=== PATIENT | female | born 1960 | race Caucasian/White ===

== ENCOUNTER 2016-10-20 10:59 | Observation (INO) | payer BC, MEDICAID, MEDICARE, OTHER ==
[2016-10-20 12:15] LABS: BASOPHILS PERCENT AUTO 0.3 % (0.2-1.2); EOSINOPHILS PERCENT AUTO 1.6 % (0.0-4.0); HEMATOCRIT 39.2 % (33.0-47.0); LYMPHOCYTES PERCENT AUTO 16.3 % (25.0-50.0); MEAN CORPUSCULAR HEMOGLOBIN 32.3 pg (26.0-32.0); MEAN CORPUSCULAR HGB CONC 33.2 g/dL (32.0-36.0); MEAN CORPUSCULAR VOLUME 97.5 fL (78.0-93.0); NEUTROPHILS PERCENT AUTO 64.9 % (50.0-80.0); RDW CV 14.6 % (10.0-15.0); RED BLOOD CELL COUNT 4.02 x10^6/uL (4.00-5.50)
[2016-10-20 12:36] LABS: A/G RATIO 0.59; ALBUMIN 2.9 g/dL (3.4-5.0); ALKALINE PHOSPHATASE 97 U/L (46-116); B-TYPE NATRIURETIC PEPTIDE,BNP 175 pg/mL (<=125); BILIRUBIN TOTAL 0.2 mg/dL (0.2-1.0); CALCIUM 9.1 mg/dL (8.5-10.1); CHLORIDE,CL 100 mmol/L (98-107); CORRECTED CALCIUM 9.98 mg/dL (8.5-10.1); ESTIMATED GFR 58; GLUCOSE RANDOM 104 mg/dL (74-106); MAGNESIUM 1.7 mg/dL (1.8-2.4)
[2016-10-20 12:37] LABS: APPEARANCE,URINE CLOUDY (CLEAR); BILIRUBIN,URINE NEGATIVE (NEGATIVE); GLUCOSE,URINE NEGATIVE (NEGATIVE); KETONES,URINE NEGATIVE (NEGATIVE); LEUKOCYTE ESTERASE,URINE NEGATIVE (NEGATIVE); NITRITE,URINE NEGATIVE (NEGATIVE); OCCULT BLOOD,URINE TRACE-INTACT (NEGATIVE); PROTEIN,URINE 100 mg/dL (NEGATIVE); UROBILINOGEN,URINE 0.2 EU/dL (0.2)
[2016-10-20 12:47] LABS: MONOCYTES PERCENT AUTO 16.9 % (2.0-11.0)
[2016-10-20 12:51] LABS: BACTERIA,URINE FEW /HPF (NEGATIVE); MUCUS,URINE FEW /LPF (NEGATIVE); WBC,URINE 0-5 /HPF (NOT SEEN)
--- NOTE | 2016-10-20 14:14 | EDM.PDOC ---
ED HPI GENERAL MEDICAL PROBLEM - General Chief Complaint: General Stated Complaint: FALL Time Seen by Provider: 10/20/16 11:06 Source of Information: Reports: Patient, EMS, Family (Sister) - History of Present Illness INITIAL COMMENTS - FREE TEXT/NARRATIVE: The patient hit her head this morning on the toilet. She then went to the floor and she could not get up. This happened about 5:00 in the morning. She does live alone. She does have a sister in town and then she has another sister lives about 15 miles out of town. She states that then she crawled over towards the couch and there she excellently rubbed her head against the carpet and suffered a rug burn to her left orbit. The patient was unable to reach her phone and notify her sister. When EMS was called EMS were unable to get into the household. They called for keys and the keys were not working so they did have to break into the door to get to the patient. Patient does have weakness. She does have a history of lung cancer with metastases to the brain. The patient has had chemotherapy about three weeks ago and she is scheduled for another round of chemotherapy here in a week. The patient is unsure why she fell when she did. She is not completely sure if she was knocked unconscious or not. I did do a CT scan of the head and neck. Back came back negative. I did talk to the radiologist at that time. I also did a chest x-ray. The patient was concerned about rib fractures on the left side these are anterior and about the ninth and 10th rib. No pneumo. The patient's sister was also concerned about rib fractures. The patient looks much older than her stated age. I did do lab work and the patient did have some incontinence and I did get two different urine specimens one was mildly suggestive of UTI. I did talk to Dr. Davis regarding this patient and he did not feel as though she met criteria for acute care. I agreed. I did put her in for observation and Jelani RUBY will cover in the morning. I think that the patient is too high risk to go home at this time because she will most likely fall at this point. She does do her own physical therapy at home. She normally sees Dr. Jam Crocker. Patient does have a port. She also has a very supportive sister. The patient did have a slight headache. She also had muscle spasms. Onset: today Duration: Getting worse Location: Reports: generalized Quality: Reports: Ache Severity: severe Improves with: Reports: None Worsens with: Reports: Movement Associated Symptoms: Reports: weakness. Denies: confusion Chest Pain Score (Numeric/FACES): 0 Head Pain Score (Numeric/FACES): 8 - Related Data Allergies Allergy/AdvReac Type Severity Reaction Status Date / Time morphine Allergy Itching Verified 10/20/16 23:18 Home Meds: Home Meds Albuterol [Proventil HFA] 1 - 2 puff INH Q4H PRN 10/20/16 [History] Aspirin 81 mg PO DAILY 10/20/16 [History] Carboxymethylcellulos/Glycerin [Refresh Optive Gel Eye Drops] 1 drop EYEBOTH BID 10/20/16 [History] Folic Acid 1 mg PO DAILY 10/20/16 [History] Levothyroxine Sodium 137 mcg PO DAILY 10/20/16 [History] Lidocaine/Prilocaine [EMLA Crm] 1 applic TOP ASDIRECTED 10/20/16 [History] Nicotine Polacrilex [Nicotine Lozenge] 1 alba PO Q2H PRN 10/20/16 [History] Omeprazole Magnesium [Prilosec Otc] 20 mg PO BID PRN 10/20/16 [History] Ondansetron [Zofran] 8 mg PO Q8H PRN 10/20/16 [History] PARoxetine HCl [Paroxetine HCl] 30 mg PO DAILY 10/20/16 [History] traMADol [Ultram] 50 - 100 mg PO Q6H PRN 10/20/16 [History] traZODone 25 - 50 mg PO BEDTIME 10/20/16 [History] Past Medical History - Past Health History Medical/Surgical History: Denies Medical/Surgical History Psychiatric History: Reports: Depression Endocrine/Metabolic History: Reports: Hypothyroidism Oncologic (Cancer) History: Reports: Brain, Lung - Past Surgical History Endocrine Surgical History: Reports: Thyroidectomy Social & Family History - Tobacco Use Smoking Status *Q: Unknown Ever Smoked Years of Tobacco use: 35 Second Hand Smoke Exposure: Yes - Alcohol Use Days Per Week of Alcohol Use: 0 - Recreational Drug Use Recreational Drug Use: No ED ROS GENERAL - Review of Systems Review Of Systems: See Below Constitutional: Reports: weakness, fatigue, decreased appetite HEENT: Reports: Other (discomfort about her head. ) Respiratory: Reports: no symptoms, shortness of breath, other (some lower left chest pain. ) Cardiovascular: Reports: Syncope Endocrine: Reports: fatigue GI/Abdominal: Reports: Diarrhea, Decreased appetite : Reports: no symptoms Musculoskeletal: Reports: muscle pain, muscle stiffness Skin: Reports: no symptoms Neurological: Reports: syncope, difficulty walking, weakness, gait disturbance Psychiatric: Reports: Depression ED EXAM, GENERAL - Physical Exam Exam: See Below Exam Limited By: No limitations General Appearance: alert, moderate distress Eye Exam: bilateral eye: EOMI Ears: normal external exam, normal canal, normal TMs Ear Exam: bilateral ear: auricle normal, canal normal, TM normal Nose: normal inspection, normal mucosa Head: facial tenderness (The patient does have a abrasion to the top of her head. She also has a rug burn to the left side of her left orbit and this is quite small.), other Neck: normal inspection, full range of motion, tender lateral Respiratory/Chest: no respiratory distress, lungs clear, other (Patient does have some reproducible discomfort about the left anterior chest about ribs 10 and 11 without any crepitus. She also has a port.) Cardiovascular: normal peripheral pulses, regular rate, rhythm GI/Abdominal: normal bowel sounds, soft, non tender Extremities: normal inspection Neurological: alert, abnormal gait. No: disoriented Psychiatric: anxious, other (cathetic in nature. ) Skin Exam: Warm, Dry Course - Vital Signs Text/Narrative:: I also gave her a liter of fluids. I will hold off on Antibiotic therapy for now until the urine culture comes back. She will be reassessed in the morning by Jelani RUBY. Last Recorded V/S: Last Vital Signs Temp 36.7 C 10/21/16 06:00 Pulse 70 10/21/16 06:00 Resp 20 10/21/16 06:00 BP 114/65 10/21/16 06:00 Pulse Ox 99 10/21/16 06:00 - Orders/Labs/Meds Orders: Active Orders 24 hr Category Date Time Status CXR [Chest 1V Frontal] [CR] Stat Exams 10/20/16 15:25 Taken Cervical Spine wo Cont [CT] Stat Exams 10/20/16 12:02 Taken Head wo Cont [CT] Stat Exams 10/20/16 12:00 Taken CULTURE URINE [RM] Stat Lab 10/20/16 12:30 Received Medication Orders Diphenhydramine HCl (Benadryl) 12.5 mg IVPUSH Q4H PRN PRN Reason: Itching Hydromorphone HCl (Dilaudid) 1 mg IVPUSH Q4H PRN PRN Reason: Pain Last Admin: 10/21/16 07:53 Dose: 1 mg Admin: 10/21/16 01:33 Dose: 1 mg Ondansetron HCl (Zofran Odt) 8 mg PO Q6H PRN PRN Reason: Nausea/Vomiting Labs: Laboratory Tests 10/20/16 10/20/16 10/20/16 Range/Units 11:31 11:31 11:31 WBC 3.7 L (4.0-10.0) x10^3/uL RBC 4.02 (4.00-5.50) x10^6/uL Hgb 13.0 (12.0-16.0) g/dL Hct 39.2 (33.0-47.0) % MCV 97.5 H (78.0-93.0) fL MCH 32.3 H (26.0-32.0) pg MCHC 33.2 (32.0-36.0) g/dL RDW Coeff of Teofilo 14.6 (10.0-15.0) % Plt Count 249 (130-400) x10^3/uL Neut % (Auto) 64.9 (50.0-80.0) % Lymph % (Auto) 16.3 L (25.0-50.0) % [place] % (Auto) 16.9 H (2.0-11.0) % Eos % (Auto) 1.6 (0.0-4.0) % Baso % (Auto) 0.3 (0.2-1.2) % Sodium 134 L (136-145) mmol/L Potassium 3.8 (3.5-5.1) mmol/L Chloride 100 (98-107) mmol/L Carbon Dioxide 28 (21-32) mmol/L BUN 16 (7-18) mg/dL Creatinine 1.0 (0.55-1.02) mg/dL Est Cr Clr Drug Dosing TNP Estimated GFR (MDRD) 58 Glucose 104 (74-106) mg/dL Lactic Acid 1.1 (0.4-2.0) mmol/L Calcium 9.1 (8.5-10.1) mg/dL Corrected Calcium 9.98 (8.5-10.1) mg/dL Magnesium 1.7 L (1.8-2.4) mg/dL Total Bilirubin 0.2 (0.2-1.0) mg/dL AST 31 (15-37) U/L ALT 41 (14-59) U/L Alkaline Phosphatase 97 (46-116) U/L Creatine Kinase (26-192) U/L B-Natriuretic Peptide 175 H (<=125) pg/mL Total Protein 7.8 (6.4-8.2) g/dL Albumin 2.9 L (3.4-5.0) g/dL Globulin 4.9 Albumin/Globulin Ratio 0.59 Urine Color (YELLOW) Urine Appearance (CLEAR) Urine pH (5.0-8.0) Ur Specific [place] Urine Protein (NEGATIVE) mg/dL Urine Glucose (UA) (NEGATIVE) mg/dL Urine Ketones (NEGATIVE) mg/dL Urine Occult Blood (NEGATIVE) Urine Nitrite (NEGATIVE) Urine Bilirubin (NEGATIVE) Urine Urobilinogen (0.2) EU/dL Ur Leukocyte Esterase (NEGATIVE) Urine RBC (NOT SEEN) /HPF Urine WBC (NOT SEEN) /HPF Ur Squamous Epith Cells (NEGATIVE) /HPF Triple Phos Crystals (NEGATIVE) /HPF Amorphous Sediment Urine Bacteria (NEGATIVE) /HPF Urine Mucus (NEGATIVE) /LPF 10/20/16 10/20/16 10/20/16 Range/Units 11:31 12:30 14:17 WBC (4.0-10.0) x10^3/uL RBC (4.00-5.50) x10^6/uL Hgb (12.0-16.0) g/dL Hct (33.0-47.0) % MCV (78.0-93.0) fL MCH (26.0-32.0) pg MCHC (32.0-36.0) g/dL RDW Coeff of Teofilo (10.0-15.0) % Plt Count (130-400) x10^3/uL Neut % (Auto) (50.0-80.0) % Lymph % (Auto) (25.0-50.0) % [place] % (Auto) (2.0-11.0) % Eos % (Auto) (0.0-4.0) % Baso % (Auto) (0.2-1.2) % Sodium (136-145) mmol/L Potassium (3.5-5.1) mmol/L Chloride (98-107) mmol/L Carbon Dioxide (21-32) mmol/L BUN (7-18) mg/dL Creatinine (0.55-1.02) mg/dL Est Cr Clr Drug Dosing Estimated GFR (MDRD) Glucose (74-106) mg/dL Lactic Acid (0.4-2.0) mmol/L Calcium (8.5-10.1) mg/dL Corrected Calcium (8.5-10.1) mg/dL Magnesium (1.8-2.4) mg/dL Total Bilirubin (0.2-1.0) mg/dL AST (15-37) U/L ALT (14-59) U/L Alkaline Phosphatase (46-116) U/L Creatine Kinase 71 (26-192) U/L B-Natriuretic Peptide (<=125) pg/mL Total Protein (6.4-8.2) g/dL Albumin (3.4-5.0) g/dL Globulin Albumin/Globulin Ratio Urine Color Yellow Yellow (YELLOW) Urine Appearance Cloudy H Turbid H (CLEAR) Urine pH 8.0 7.5 (5.0-8.0) Ur Specific [place] 1.020 1.020 Urine Protein 100 H 100 H (NEGATIVE) mg/dL Urine Glucose (UA) Negative Negative (NEGATIVE) mg/dL Urine Ketones Negative Negative (NEGATIVE) mg/dL Urine Occult Blood Trace-intact H Small H (NEGATIVE) Urine Nitrite Negative Negative (NEGATIVE) Urine Bilirubin Negative Negative (NEGATIVE) Urine Urobilinogen 0.2 0.2 (0.2) EU/dL Ur Leukocyte Esterase Negative Negative (NEGATIVE) Urine RBC 10-20 H 10-20 H (NOT SEEN) /HPF Urine WBC 0-5 0-5 (NOT SEEN) /HPF Ur Squamous Epith Cells Few H Not seen (NEGATIVE) /HPF Triple Phos Crystals Few H (NEGATIVE) /HPF Amorphous Sediment Moderate Moderate Urine Bacteria Few H Many H (NEGATIVE) /HPF Urine Mucus Few H Rare H (NEGATIVE) /LPF Meds: Medications Generic Name Dose Route Start Last Admin Trade Name Freq PRN Reason Stop Dose Admin Diphenhydramine HCl 12.5 mg 10/20/16 23:14 Benadryl IVPUSH Q4H PRN Itching Hydromorphone HCl 1 mg 10/20/16 23:16 10/21/16 07:53 Dilaudid IVPUSH 1 mg Q4H PRN Administration Pain Ondansetron HCl 8 mg 10/20/16 19:32 Zofran Odt PO Q6H PRN Nausea/Vomiting Discontinued Medications Generic Name Dose Route Start Last Admin Trade Name Freq PRN Reason Stop Dose Admin Hydromorphone HCl 1 mg 10/20/16 14:19 10/20/16 14:39 Dilaudid IVPUSH 10/20/16 14:20 1 mg ONETIME ONE Administration Ketorolac Tromethamine 30 mg 10/20/16 14:18 10/20/16 14:34 Toradol IVPUSH 10/20/16 14:19 30 mg ONETIME ONE Administration Morphine Sulfate 2 mg 10/20/16 19:29 10/20/16 21:45 Morphine IVPUSH 2 mg Q3H PRN Administration Pain Departure - Departure Time of Disposition: 15:00 Disposition: Refer to Observation Preliminary Cause of *Q: Cardiac arrest Condition: fair Clinical Impression: Failure to thrive in adult Urinary tract infection Qualifiers: Urinary tract infection type: acute cystitis Hematuria presence: without hematuria Qualified Code(s): N30.00 - Acute cystitis without hematuria Scalp abrasion Qualifiers: Encounter type: initial encounter Qualified Code(s): S00.01XA - Abrasion of scalp, initial encounter Scalp contusion Qualifiers: Encounter type: initial encounter Qualified Code(s): S00.03XA - Contusion of scalp, initial encounter - My Orders Last 24 Hours: My Active Orders 10/20/16 12:00 Head wo Cont [CT] Stat 10/20/16 12:02 Cervical Spine wo Cont [CT] Stat 10/20/16 12:30 CULTURE URINE [RM] Stat 10/20/16 15:25 CXR [Chest 1V Frontal] [CR] Stat - Assessment/Plan Last 24 Hours: My Active Orders 10/20/16 12:00 Head wo Cont [CT] Stat 10/20/16 12:02 Cervical Spine wo Cont [CT] Stat 10/20/16 12:30 CULTURE URINE [RM] Stat 10/20/16 15:25 CXR [Chest 1V Frontal] [CR] Stat
[2016-10-20] MEDS ORDERED: Ketorolac 30 MG/ML SDV IVPUSH ONE (14:18)
[2016-10-20] MEDS ORDERED: HYDROmorphone 1 MG/ML Syringe IVPUSH ONE (14:19)
[2016-10-20 15:13] LABS: APPEARANCE,URINE TURBID (CLEAR); BILIRUBIN,URINE NEGATIVE (NEGATIVE); GLUCOSE,URINE NEGATIVE (NEGATIVE); KETONES,URINE NEGATIVE (NEGATIVE); LEUKOCYTE ESTERASE,URINE NEGATIVE (NEGATIVE); NITRITE,URINE NEGATIVE (NEGATIVE); OCCULT BLOOD,URINE SMALL (NEGATIVE); PH,URINE 7.5 (5.0-8.0); PROTEIN,URINE 100 mg/dL (NEGATIVE); UROBILINOGEN,URINE 0.2 EU/dL (0.2); WBC,URINE 0-5 /HPF (NOT SEEN)
[2016-10-20 15:14] LABS: BACTERIA,URINE MANY /HPF (NEGATIVE); MUCUS,URINE RARE /LPF (NEGATIVE)
[2016-10-20] MEDS ORDERED: Morphine 2 MG/ML Syringe IVPUSH PRN (19:29)
[2016-10-20] MEDS ORDERED: Ondansetron 4 MG Tab.DIS PO PRN (19:32)
[2016-10-20] MEDS ORDERED: diphenhydrAMINE 50 MG/ML SDV IVPUSH PRN (23:14)
[2016-10-21] MEDS: HYDROmorphone 1 MG/ML Syringe IVPUSH PRN ×2 (01:33→07:53)
[2016-10-21] MEDS ORDERED: Ondansetron 4 MG Tab.DIS PO PRN ×2 (11:35→12:47)
[2016-10-21] MEDS ORDERED: Acetaminophen/HYDROcodone 325-5 MG Tab PO PRN (11:36)
[2016-10-21] MEDS ORDERED: Omeprazole 20 MG Cap.CR PO PRN (12:47)
[2016-10-21] MEDS ORDERED: Albuterol 8 GM Inhaler INH PRN (12:47)
[2016-10-21] MEDS: traMADol 50 MG Tab PO PRN ×2 (16:03→22:03)
[2016-10-21] MEDS ORDERED: traZODone 50 MG Tab PO SCH (20:00)
[2016-10-21] MEDS: Dextran 70/Hypromellose/PF Ophth Soln 0.9 ML UD EYEBOTH SCH (20:16)
[2016-10-22] MEDS ORDERED: Levothyroxine 112 MCG Tab PO SCH (07:00)
[2016-10-22] MEDS ORDERED: Levothyroxine 25 MCG Tab PO SCH (07:00)
[2016-10-22] MEDS: Dextran 70/Hypromellose/PF Ophth Soln 0.9 ML UD EYEBOTH SCH (07:23)
[2016-10-22] MEDS ORDERED: Aspirin 81 MG Tab.Chew PO SCH (08:00)
[2016-10-22] MEDS ORDERED: Folic Acid 1 MG Tab PO SCH (08:00)
[2016-10-22] MEDS ORDERED: PARoxetine 20 MG Tab PO SCH (08:00)
[2016-10-22 14:05] VITALS: BP 112/70
--- NOTE | 2016-10-22 14:06 | PCM.PN ---
- General Info Date of Service: 10/21/16 Admission Dx/Problem (Free Text): s/p day 1 obs from ER 2nd to fall and contusion to head Functional Status: Reports: pain controlled, tolerating diet, other (able to ambulate to bedside commode ) - Review of Systems General: Reports: no symptoms HEENT: Reports: no symptoms Pulmonary: Reports: no symptoms Cardiovascular: Reports: no symptoms Gastrointestinal: Reports: No symptoms Genitourinary: Reports: no symptoms Musculoskeletal: Reports: no symptoms Neurological: Reports: headache. Denies: confusion (pt states TAYLOR has improved and getting better through the night after hydromorphone 1 mg IV ), dizziness, numbness, tingling Psychiatric: Reports: no symptoms - Patient Data Vitals - most recent: Last Vital Signs Temp 36.9 C 10/22/16 09:52 Pulse 78 10/22/16 09:52 Resp 16 10/22/16 09:52 BP 112/65 10/22/16 09:52 Pulse Ox 95 10/22/16 09:52 Weight - most recent: 74.707 kg I&O - last 24 hours: Intake & Output 10/21/16 10/22/16 10/22/16 22:59 06:59 14:59 Intake Total 770 580 600 Output Total 700 1250 Balance 70 -670 600 Med Orders - Current: Current Medications Acetaminophen/Hydrocodone Bitart ([place] 325-5 Mg) 1 tab PO Q6H PRN PRN Reason: Pain Albuterol (Ventolin Hfa) 0 gm INH Q4H PRN PRN Reason: Shortness of Breath Artificial Tears (Tears Naturale Free) 1 each EYEBOTH BID [facility] Last Admin: 10/22/16 07:23 Dose: 1 each Aspirin (Aspirin) 81 mg PO DAILY [facility] Last Admin: 10/22/16 07:23 Dose: 81 mg Diphenhydramine HCl (Benadryl) 12.5 mg IVPUSH Q4H PRN PRN Reason: Itching Folic Acid (Folic Acid) 1 mg PO DAILY [facility] Last Admin: 10/22/16 07:23 Dose: 1 mg Hydromorphone HCl (Dilaudid) 1 mg IVPUSH Q4H PRN PRN Reason: Pain Last Admin: 10/21/16 07:53 Dose: 1 mg Levothyroxine Sodium (Levothyroxine) 112 mcg PO BRK [facility] Last Admin: 10/22/16 06:25 Dose: 112 mcg Levothyroxine Sodium (Levothyroxine) [facility] Last Admin: 10/22/16 06:24 Dose: 25 mcg Omeprazole (Omeprazole) 20 mg PO BID PRN PRN Reason: Other Last Admin: 10/22/16 01:48 Dose: 20 mg Ondansetron HCl (Zofran Odt) 8 mg PO Q6H PRN PRN Reason: Nausea/Vomiting Ondansetron HCl (Zofran Odt) 4 mg PO Q4H PRN PRN Reason: Nausea/Vomiting Ondansetron HCl (Zofran Odt) 8 mg PO Q8H PRN PRN Reason: Nausea Paroxetine HCl (Paxil) 30 mg PO DAILY [facility] Last Admin: 10/22/16 07:23 Dose: 30 mg Tramadol HCl (Ultram) 50 - 100 mg PO Q6H PRN PRN Reason: Pain Last Admin: 10/21/16 22:03 Dose: 100 mg Trazodone HCl (Trazodone) 25 - 50 mg PO BEDTIME [facility] Last Admin: 10/21/16 20:14 Dose: Not Given Discontinued Medications Hydromorphone HCl (Dilaudid) 1 mg IVPUSH ONETIME ONE Stop: 10/20/16 14:20 Last Admin: 10/20/16 14:39 Dose: 1 mg Ketorolac Tromethamine (Toradol) 30 mg IVPUSH ONETIME ONE Stop: 10/20/16 14:19 Last Admin: 10/20/16 14:34 Dose: 30 mg Morphine Sulfate (Morphine) 2 mg IVPUSH Q3H PRN PRN Reason: Pain Last Admin: 10/20/16 21:45 Dose: 2 mg - Exam General: alert, oriented, other (pt doing well this am eating breakfast no problems although does not feel she can go home today due to no support at home a ? unsteadyness ) HEENT: Pupils equal, Pupils reactive, EOMI Neck: supple, trachea midline, no JVD Lungs: Clear to auscultation, Normal respiratory effort Cardiovascular: regular rate, regular rhythm Abdomen: bowel sounds present, soft, no tenderness, no distension Extremities: no edema Skin: warm, dry, intact Neurological: normal speech, strength equal bilateral Psy/Mental Status: alert, normal affect, normal mood - Problem List & Annotations (1) Contusion of head SNOMED Code(s): 082920461 Code(s): S00.93XA - CONTUSION OF UNSPECIFIED PART OF HEAD, INITIAL ENCOUNTER Status: Acute Current Visit: Yes Qualifiers: Encounter type: subsequent encounter Contusion of head detail: other part of head Qualified Code(s): S00.83XD - Contusion of other part of head, subsequent encounter - Problem List Review Problem List Initiated/Reviewed/Updated: Yes - My Orders Last 24 Hours: My Active Orders 10/21/16 20:00 Dextran 70/Hypromellose/PF [Tears Naturale Free] 1 each EYEBOTH BID traZODone 25 - 50 mg PO BEDTIME 10/22/16 07:00 Levothyroxine 112 mcg PO ACBRK Levothyroxine 25 mcg PO ACBRK 10/22/16 08:00 Aspirin 81 mg PO DAILY Folic Acid 1 mg PO DAILY PARoxetine [Paxil] 30 mg PO DAILY - Assessment Assessment:: contusion head Headache s/p contusion Sohail MALAVE LungFRIEDA - Plan Plan:: pt to cont obs for 24hours meds for TAYLOR and contusion will consult physical therapy and neonatal social worker for ? placement or hospice if pt wishes
--- NOTE | 2016-10-22 14:30 | PCM.DCSUM1 ---
Discharge Summary - Discharge Data Discharge Date: 10/22/16 Discharge Disposition: Home, Self-Care 01 Condition: Good - Discharge Diagnosis/Problem(s) (1) Contusion of head SNOMED Code(s): 165169042 ICD Code: S00.93XA - CONTUSION OF UNSPECIFIED PART OF HEAD, INITIAL ENCOUNTER Status: Acute Current Visit: Yes Qualifiers: Encounter type: subsequent encounter Contusion of head detail: other part of head Qualified Code(s): S00.83XD - Contusion of other part of head, subsequent encounter - Patient Summary/Data Consults: Consultations 10/21/16 10:29 PT Evaluation and Treatment [CONS] Routine 10/21/16 11:24 Consult to Station Engineer Chief [CONS] Routine - Patient Instructions Diet: Regular Diet as Tolerated Activity: As Tolerated Driving: May Drive Today Showering/Bathing: May Shower Notify Provider of: Fever, Increased Pain, Nausea and/or Vomiting - Discharge Plan Home Medications: Home Meds Albuterol [Proventil HFA] 1 - 2 puff INH Q4H PRN 10/20/16 [History] Aspirin 81 mg PO DAILY 10/20/16 [History] Carboxymethylcellulos/Glycerin [Refresh Optive Gel Eye Drops] 1 drop EYEBOTH BID 10/20/16 [History] Folic Acid 1 mg PO DAILY 10/20/16 [History] Levothyroxine Sodium 137 mcg PO DAILY 10/20/16 [History] Lidocaine/Prilocaine [EMLA Crm] 1 applic TOP ASDIRECTED 10/20/16 [History] Nicotine Polacrilex [Nicotine Lozenge] 1 alba PO Q2H PRN 10/20/16 [History] Omeprazole Magnesium [Prilosec Otc] 20 mg PO BID PRN 10/20/16 [History] Ondansetron [Zofran] 8 mg PO Q8H PRN 10/20/16 [History] PARoxetine HCl [Paroxetine HCl] 30 mg PO DAILY 10/20/16 [History] traMADol [Ultram] 50 - 100 mg PO Q6H PRN 10/20/16 [History] traZODone 25 - 50 mg PO BEDTIME 10/20/16 [History] Forms: ED Department Discharge Referrals: PCP,Not In Area [Primary Care Provider] - (follow up with your primary care provider and your oncologist in the next 2-3 days ) - General Info Date of Service: 10/22/16 Admission Dx/Problem (Free Text: s/p day 1 obs from ER 2nd to fall and contusion to head Functional Status: Reports: pain controlled, tolerating diet, ambulating, urinating - Review of Systems General: Reports: no symptoms HEENT: Reports: no symptoms Pulmonary: Reports: no symptoms Cardiovascular: Reports: no symptoms Gastrointestinal: Reports: No symptoms Genitourinary: Reports: no symptoms. Denies: dysuria, frequency, burning, pain Musculoskeletal: Reports: no symptoms Skin: Reports: no symptoms Neurological: Reports: no symptoms. Denies: confusion, dizziness, headache (TAYLOR has resolved and pt wished to go home does not want any pain meds to go home with ) Psychiatric: Reports: no symptoms - Patient Data Vitals - Most Recent: Last Vital Signs Temp 36.8 C 10/22/16 14:00 Pulse 81 10/22/16 14:00 Resp 20 10/22/16 14:00 BP 112/70 10/22/16 14:00 Pulse Ox 97 10/22/16 14:00 Weight - Most Recent: 74.707 kg I&O - Last 24 hours: Intake & Output 10/21/16 10/22/16 10/22/16 22:59 06:59 14:59 Intake Total 770 580 600 Output Total 700 1250 Balance 70 -670 600 Med Orders - Current: Current Medications Acetaminophen/Hydrocodone Bitart ([place] 325-5 Mg) 1 tab PO Q6H PRN PRN Reason: Pain Albuterol (Ventolin Hfa) 0 gm INH Q4H PRN PRN Reason: Shortness of Breath Artificial Tears (Tears Naturale Free) 1 each EYEBOTH BID [facility] Last Admin: 10/22/16 07:23 Dose: 1 each Aspirin (Aspirin) 81 mg PO DAILY [facility] Last Admin: 10/22/16 07:23 Dose: 81 mg Diphenhydramine HCl (Benadryl) 12.5 mg IVPUSH Q4H PRN PRN Reason: Itching Folic Acid (Folic Acid) 1 mg PO DAILY [facility] Last Admin: 10/22/16 07:23 Dose: 1 mg Hydromorphone HCl (Dilaudid) 1 mg IVPUSH Q4H PRN PRN Reason: Pain Last Admin: 10/21/16 07:53 Dose: 1 mg Levothyroxine Sodium (Levothyroxine) 112 mcg PO [facility] Last Admin: 10/22/16 06:25 Dose: 112 mcg Levothyroxine Sodium (Levothyroxine) 25 mcg PO [facility] Last Admin: 10/22/16 06:24 Dose: 25 mcg Omeprazole (Omeprazole) 20 mg PO BID PRN PRN Reason: Other Last Admin: 10/22/16 01:48 Dose: 20 mg Ondansetron HCl (Zofran Odt) 8 mg PO Q6H PRN PRN Reason: Nausea/Vomiting Ondansetron HCl (Zofran Odt) 4 mg PO Q4H PRN PRN Reason: Nausea/Vomiting Ondansetron HCl (Zofran Odt) 8 mg PO Q8H PRN PRN Reason: Nausea Paroxetine HCl (Paxil) 30 mg PO DAILY [facility] Last Admin: 10/22/16 07:23 Dose: 30 mg Tramadol HCl (Ultram) 50 - 100 mg PO Q6H PRN PRN Reason: Pain Last Admin: 10/21/16 22:03 Dose: 100 mg Trazodone HCl (Trazodone) 25 - 50 mg PO BEDTIME [facility] Last Admin: 10/21/16 20:14 Dose: Not Given Discontinued Medications Hydromorphone HCl (Dilaudid) 1 mg IVPUSH ONETIME ONE Stop: 10/20/16 14:20 Last Admin: 10/20/16 14:39 Dose: 1 mg Ketorolac Tromethamine (Toradol) 30 mg IVPUSH ONETIME ONE Stop: 10/20/16 14:19 Last Admin: 10/20/16 14:34 Dose: 30 mg Morphine Sulfate (Morphine) 2 mg IVPUSH Q3H PRN PRN Reason: Pain Last Admin: 10/20/16 21:45 Dose: 2 mg - Exam General: Reports: alert, oriented, cooperative HEENT: Reports: Pupils equal, Pupils reactive, EOMI Neck: Reports: supple, no JVD Lungs: Reports: Clear to auscultation, Normal respiratory effort Cardiovascular: Reports: regular rate, regular rhythm, no murmurs Abdomen: Reports: bowel sounds present, soft, no tenderness, no distension Back Exam: Reports: normal inspection, full range of motion Extremities: Reports: no edema, no tenderness/swelling Skin: Reports: warm, dry, intact Psy/Mental Status: Reports: alert, normal affect, normal mood *Q Meaningful Use (DIS) - VTE *Q VTE Criteria *Q: - Stroke *Q Stroke Criteria *Q: - AMI *Q AMI Criteria *Q:
== END 2016-10-22 15:20 | disposition home or self-care (01) ==
LOC: VM.ED 10:59 → VM.MS 15:26
PROVIDERS: ADMIT Physician Assistant; ATTEND Physician Assistant Medical
DX: S00.83XD Contusion of other part of head, subsequent encounter (principal); N30.00 Acute cystitis without hematuria; F32.9 Major depressive disorder, single episode, unspecified; E03.9 Hypothyroidism, unspecified; E89.0 Postprocedural hypothyroidism; Z79.82 Long term (current) use of aspirin; Z79.899 Other long term (current) drug therapy; W19.XXXA Unspecified fall, initial encounter; Z88.8 Allergy status to other drugs, medicaments and biological substances
CPT/HCPCS: 36415; 70450; 71010; 72125; 80053; 81001; 82550; 83605; 83735; 83880; 85025; 87086; 93005; 96374; 96375; 96376; 97116; 97161; 99285; A9270; G0378; J1170; J1885; J2270